=== PATIENT | female | born 1965 | race Caucasian/White ===

== ENCOUNTER 2018-01-08 12:33 | Inpatient (IN) | payer MEDICAID, OTHER ==
[~2018-01-08] VITALS: Ht 162.6 cm; Wt 63.5 kg
[2018-01-08] MEDS ORDERED: VALP250S3 PO (12:59)
[2018-01-08] MEDS ORDERED: SODIUM CHLORIDE 0.9% 1,000ML IVBOLUS ONE (14:00)
[2018-01-08] MEDS ORDERED: THIAMINE 100MG TABLET PO ONE (14:00)
[2018-01-08] MEDS ORDERED: ONDANSETRON 2MG/ML, 2ML IVPush ONE (14:00)
[2018-01-08] MEDS ORDERED: DIAZEPAM 5 MG/ML, 2ML IVPush PRN ×2 (14:00→14:30)
[2018-01-08 14:07] LABS: BASOPHILS # (AUTO) 0.03 x10^3/uL (0-0.1); BASOPHILS % (AUTO) 0 % (0-1); EOSINOPHILS % (AUTO) 0 % (1-7); LYMPHOCYTES % (AUTO) 15 % (22-44); MD NO; MEAN CORPUSCULAR HEMOGLOBIN 31.3 pg (27.0-34.8); MEAN CORPUSCULAR HGB CONC 34.1 g/dL (32.4-35.8); MEAN CORPUSCULAR VOLUME 91.8 fL (80-100); MEAN PLATELET VOLUME 6.8 fL (7.4-10.4); MONOCYTES # (AUTO) 0.34 x10^3/uL (0.2-0.8); MONOCYTES % (AUTO) 4 % (2-9); NEUTROPHILS # (AUTO) 7.02 x10^3/uL (1.8-6.8); NEUTROPHILS % (AUTO) 81 % (42-75); PLATELET COUNT 409 x10^3/uL (130-400); RED CELL DISTRIBUTION WIDTH 14.8 % (9.6-15.2)
[2018-01-08] MEDS ORDERED: ONDANSETRON 2MG/ML, 2ML ONE (14:15)
[2018-01-08] MEDS ORDERED: THIAMINE 100MG TABLET ONE (14:15)
[2018-01-08 14:16] LABS: ALANINE AMINOTRANSFERASE 35 U/L (12-78); ANION GAP 19 mmol/L (5-15); CHLORIDE 103 mmol/L (98-107); CREATININE 0.79 mg/dL (0.55-1.02)
[2018-01-08 14:18] LABS: ALKALINE PHOSPHATASE 168 U/L (45-117); BILIRUBIN,TOTAL 0.8 mg/dL (0.2-1.0); TOTAL PROTEIN 8.4 g/dL (6.4-8.2)
[2018-01-08] MEDS ORDERED: ARIP5TAB13 PO (15:22)
[2018-01-08] MEDS ORDERED: GABA800T2 PO (15:22)
[2018-01-08] MEDS ORDERED: TIZA4CAP2 PO (15:24)
[2018-01-08] MEDS ORDERED: LORazepam 2 MG/ML, 1ML ONE ×2 (15:58→17:59)
[2018-01-08] MEDS ORDERED: LORazepam 2 MG/ML, 1ML IV PRN ×10 (16:00→18:30)
[2018-01-08] MEDS ORDERED: LORazepam 2 MG/ML, 1ML IVPush ONE (18:00)
[2018-01-08] MEDS ORDERED: ONDANSETRON 2MG/ML, 2ML IV PRN (18:30)
[2018-01-08] MEDS ORDERED: LORazepam 1MG TABLET PO PRN ×3 (18:30)
[2018-01-08] MEDS ORDERED: BISACODYL 10 MG SUPP PR PRN (18:30)
[2018-01-08] MEDS ORDERED: ENALAPRILAT 1.25 MG/ML, 2ML IV PRN (18:30)
[2018-01-08] MEDS ORDERED: LABETALOL 5MG/ML, 20ML IVPush PRN (18:30)
[2018-01-08 18:57] LABS: BILIRUBIN, DIRECT 0.2 mg/dL (0.1-0.2)
[2018-01-08 18:59] LABS: BILIRUBIN,INDIRECT 0.6 mg/dL (0.0-2.0); BILIRUBIN,TOTAL 0.8 mg/dL (0.2-1.0); TOTAL PROTEIN 8.6 g/dL (6.4-8.2)
[2018-01-08 20:01] VITALS: BP 134/78
[2018-01-08] MEDS: VALPROIC ACID 250 MG CAPSULE PO SCH (21:32)
[2018-01-08] MEDS: POTASSIUM CHLORIDE 20 MEQ, MAGNESIUM SULFATE 1 GM, MVI ADULT 10 ML, THIAMINE 200 MG, FO... IV SCH (21:32)
[2018-01-08] MEDS: ARIPIPRAZOLE 5 MG TABLET PO SCH (21:32)
[2018-01-08 21:37] LABS: % IRON SATURATION 25 % (20-55); IRON LEVEL 119 mcg/dL (50-170); TOTAL IRON BINDING CAPACITY 480 mcg/dL (250-450)
[2018-01-08] MEDS ORDERED: GABAPENTIN 300 MG CAPSULE PO SCH (22:30)
[2018-01-08] MEDS: GABAPENTIN 300 MG CAPSULE PO SCH (22:36)
[2018-01-08] MEDS: LORazepam 0.5MG TABLET PO PRN (22:37)
[2018-01-09 01:13] LABS: MICROSCOPIC AUTO
[2018-01-09 01:23] LABS: AMPHETAMINE SCREEN, URINE Negative (Negative); BARBITURATE SCREEN, URINE Negative (Negative); BENZODIAZEPINE SCREEN, URINE Positive (Negative); CANNABINOID SCREEN, URINE Positive (Negative); COCAINE SCREEN, URINE Negative (Negative); METHADONE SCREEN, URINE Negative (Negative); OPIATE SCREEN, URINE Negative (Negative)
[2018-01-09 01:45] LABS: CULTURE INDICATED? YES
[2018-01-09 02:00] VITALS: BP 120/71
[2018-01-09 05:54] LABS: BASOPHILS # (AUTO) 0.02 x10^3/uL (0-0.1); BASOPHILS % (AUTO) 0 % (0-1); EOSINOPHILS # (AUTO) 0.03 x10^3/uL (0-0.4); EOSINOPHILS % (AUTO) 1 % (1-7); LYMPHOCYTES % (AUTO) 32 % (22-44); MD NO; MEAN CORPUSCULAR HEMOGLOBIN 31.1 pg (27.0-34.8); MEAN CORPUSCULAR HGB CONC 33.8 g/dL (32.4-35.8); MEAN PLATELET VOLUME 6.7 fL (7.4-10.4); MONOCYTES # (AUTO) 0.55 x10^3/uL (0.2-0.8); MONOCYTES % (AUTO) 10 % (2-9); NEUTROPHILS # (AUTO) 3.21 x10^3/uL (1.8-6.8); NEUTROPHILS % (AUTO) 57 % (42-75); PLATELET COUNT 321 x10^3/uL (130-400); RED BLOOD COUNT 4.16 x10^6/uL (3.82-5.3); RED CELL DISTRIBUTION WIDTH 15.3 % (9.6-15.2)
[2018-01-09 06:04] LABS: CHLORIDE 107 mmol/L (98-107)
[2018-01-09 06:14] LABS: ALANINE AMINOTRANSFERASE 28 U/L (12-78); ALBUMIN 3.4 g/dL (3.4-5.0); ALKALINE PHOSPHATASE 114 U/L (45-117); ANION GAP 8 mmol/L (5-15); CALCIUM 8.5 mg/dL (8.5-10.1); CREATININE 0.65 mg/dL (0.55-1.02); TOTAL PROTEIN 6.2 g/dL (6.4-8.2)
[2018-01-09 06:48] VITALS: BP 87/58
[2018-01-09] MEDS: LORazepam 0.5MG TABLET PO PRN ×3 (08:31→16:38)
[2018-01-09] MEDS: GABAPENTIN 300 MG CAPSULE PO SCH (08:31)
[2018-01-09] MEDS: VALPROIC ACID 250 MG CAPSULE PO SCH ×3 (08:31→20:36)
[2018-01-09] MEDS: SERTRALINE 50MG TABLET PO SCH (08:36)
[2018-01-09] MEDS ORDERED: GABAPENTIN 300 MG CAPSULE PO SCH (09:00)
[2018-01-09 10:09] VITALS: BP 98/61
[2018-01-09 12:50] VITALS: BP 132/74
[2018-01-09] MEDS: GABAPENTIN 400 MG CAPSULE PO SCH ×2 (16:37→20:35)
[2018-01-09] MEDS: POTASSIUM CHLORIDE 20 MEQ, MAGNESIUM SULFATE 1 GM, MVI ADULT 10 ML, THIAMINE 200 MG, FO... IV SCH (20:35)
[2018-01-09] MEDS: ARIPIPRAZOLE 5 MG TABLET PO SCH (20:36)
[2018-01-09] MEDS: LORazepam 1MG TABLET PO PRN (20:48)
[2018-01-09 21:12] VITALS: BP 114/70
[2018-01-10 00:19] VITALS: BP 115/76
[2018-01-10] MEDS: LORazepam 1MG TABLET PO PRN ×5 (00:58→22:40)
[2018-01-10] MEDS: LORazepam 0.5MG TABLET PO PRN (05:53)
[2018-01-10 08:48] VITALS: BP 114/76
[2018-01-10] MEDS: DOCUSATE 100 MG CAPSULE PO PRN ×2 (09:14→15:04)
[2018-01-10] MEDS: VALPROIC ACID 250 MG CAPSULE PO SCH ×3 (09:14→21:13)
[2018-01-10] MEDS: GABAPENTIN 400 MG CAPSULE PO SCH ×3 (09:14→21:12)
[2018-01-10] MEDS: SERTRALINE 50MG TABLET PO SCH (09:14)
[2018-01-10] MEDS: NICOTINE 21 MG/24 HR PATCH.TD24 TD SCH (09:48)
[2018-01-10 13:23] VITALS: BP 107/73
[2018-01-10] MEDS: NEUTRA PHOS K 250 MG TABLET PO SCH (21:12)
[2018-01-10] MEDS: ARIPIPRAZOLE 5 MG TABLET PO SCH (21:13)
[2018-01-10 21:19] VITALS: BP 116/80
[2018-01-11 02:28] VITALS: BP 126/83
[2018-01-11] MEDS: LORazepam 1MG TABLET PO PRN ×5 (02:44→22:34)
[2018-01-11] MEDS: VALPROIC ACID 250 MG CAPSULE PO SCH ×3 (09:05→22:33)
[2018-01-11] MEDS: CYANOCOBALAMIN 1,000 MCG TABLET PO SCH (09:06)
[2018-01-11] MEDS: MULTIVITAMIN 1 TABLET PO SCH (09:06)
[2018-01-11] MEDS: FOLIC ACID 1 MG TABLET PO SCH (09:06)
[2018-01-11] MEDS: SERTRALINE 50MG TABLET PO SCH (09:06)
[2018-01-11] MEDS: NEUTRA PHOS K 250 MG TABLET PO SCH ×2 (09:06→22:33)
[2018-01-11] MEDS: GABAPENTIN 400 MG CAPSULE PO SCH ×3 (09:06→22:33)
[2018-01-11] MEDS: NICOTINE 21 MG/24 HR PATCH.TD24 TD SCH (09:07)
[2018-01-11 09:15] VITALS: BP 133/70
[2018-01-11] MEDS: DOCUSATE 100 MG CAPSULE PO PRN (09:18)
[2018-01-11 11:40] VITALS: BP 102/69
[2018-01-11 13:59] VITALS: BP 112/73
[2018-01-11] MEDS ORDERED: CLON1TAB PO (14:42)
[2018-01-11 20:00] VITALS: BP 149/92
[2018-01-11] MEDS: DOCUSATE 100 MG CAPSULE PO SCH (22:34)
[2018-01-11] MEDS: ARIPIPRAZOLE 5 MG TABLET PO SCH (22:34)
[2018-01-12 03:59] VITALS: BP 136/91
[2018-01-12] MEDS: LORazepam 1MG TABLET PO PRN (04:19)
[2018-01-12 07:15] VITALS: BP_SYST 114; BP_SYST 124; BP_DIAS 62; BP_DIAS 74
[2018-01-12] MEDS: SERTRALINE 50MG TABLET PO SCH (09:48)
[2018-01-12] MEDS: DOCUSATE 100 MG CAPSULE PO SCH (09:48)
[2018-01-12] MEDS: NEUTRA PHOS K 250 MG TABLET PO SCH (09:48)
[2018-01-12] MEDS: FOLIC ACID 1 MG TABLET PO SCH (09:48)
[2018-01-12] MEDS: NICOTINE 21 MG/24 HR PATCH.TD24 TD SCH (09:48)
[2018-01-12] MEDS: VALPROIC ACID 250 MG CAPSULE PO SCH (09:48)
[2018-01-12] MEDS: GABAPENTIN 400 MG CAPSULE PO SCH (09:49)
[2018-01-12] MEDS: CYANOCOBALAMIN 1,000 MCG TABLET PO SCH (09:49)
[2018-01-12] MEDS: MULTIVITAMIN 1 TABLET PO SCH (09:49)
[2018-01-12] MEDS ORDERED: CYAN10005 PO (12:50)
[2018-01-12] MEDS ORDERED: FOLI-17 PO (12:50)
[2018-01-12] MEDS ORDERED: MULT1TAB60 PO (12:50)
[2018-01-12 13:37] VITALS: BP 150/78
[2018-01-12] MEDS ORDERED: PNEUMOCOCCAL 23 VACCINE IM-VACC ONE (14:30)
== END 2018-01-12 14:43 | disposition home or self-care (01) | DRG 897 ==
LOC: ED 18:04 → EDIP 18:05 → ED 18:28 → 4EST 19:56
PROVIDERS: ADMIT Internal Medicine; ATTEND Internal Medicine
DX: F10.239 Alcohol dependence with withdrawal, unspecified (principal); G40.909 Epilepsy, unspecified, not intractable, without status epilepticus; F17.210 Nicotine dependence, cigarettes, uncomplicated; F31.9 Bipolar disorder, unspecified; M54.12 Radiculopathy, cervical region; Y90.0 Blood alcohol level of less than 20 mg/100 ml; F41.9 Anxiety disorder, unspecified; G62.9 Polyneuropathy, unspecified; M54.5 Low back pain; R00.0 Tachycardia, unspecified; R30.0 Dysuria; Z87.442 Personal history of urinary calculi; Z90.49 Acquired absence of other specified parts of digestive tract; Z90.710 Acquired absence of both cervix and uterus; Z98.82 Breast implant status; Z88.0 Allergy status to penicillin; Z88.2 Allergy status to sulfonamides
CPT/HCPCS: 36415; 80053; 80076; 80307; 81001; 83540; 83550; 83735; 84100; 85025; 87086; 93005; 96374; 96375; 96376; J2405; J3360; J3411; J3475; J3480; J2060; J7030